=== PATIENT | female | born 1970 | race Caucasian/White ===

== ENCOUNTER 2017-06-24 13:16 | Emergency (ER) | payer BC ==
[2017-06-24] MEDS ORDERED: Ketorolac 60 MG/2 ML SDV IM ONE (13:26)
--- NOTE | 2017-06-24 14:28 | EDM.PDOC ---
ED HPI GENERAL MEDICAL PROBLEM - General Chief Complaint: Upper Extremity Injury/Pain Stated Complaint: LEFT ARM Time Seen by Provider: 06/24/17 13:25 Source of Information: Reports: Patient, Family History Limitations: Reports: No Limitations - History of Present Illness INITIAL COMMENTS - FREE TEXT/NARRATIVE: 47 y.o.w.f with H/O CAD, came to the ed after she slipped on ice and fell on ice at home onto her left forearm/wrist. On arrival, pt c/o severe pain with movement on her left wrist. Pt denies any other acute medical issues. BP 136/ 76 pulse 66 RR 18 Pulse ox 100% on RA Onset Date: 06/24/17 Onset Time: 12:05 Duration: Hour(s): Location: Reports: Upper Extremity, Left Quality: Reports: Ache, Dull Severity: Mild Improves with: Reports: Rest Worsens with: Reports: Movement Context: Reports: Trauma (Fell on ice to left wrist) Associated Symptoms: Reports: No Other Symptoms left wrist Pain Score (Numeric/FACES): 10 - Related Data Allergies Allergy/AdvReac Type Severity Reaction Status Date / Time bee venom protein (honey bee) Allergy Hives Verified 06/24/17 13:25 codeine Allergy Hives Verified 06/24/17 13:25 Home Meds: Home Meds NK [No Known Home Meds] 06/24/17 [History] Social & Family History - Family History Family Medical History: Noncontributory - Tobacco Use Smoking Status *Q: Never Smoker Second Hand Smoke Exposure: No - Caffeine Use Caffeine Use: Reports: Soda - Recreational Drug Use Recreational Drug Use: No Review of Systems - Review of Systems Review Of Systems: See Below Constitutional: Reports: No Symptoms Eyes: Reports: No Symptoms Ears: Reports: No Symptoms Nose: Reports: No Symptoms Mouth/Throat: Reports: No Symptoms Respiratory: Reports: No Symptoms Cardiovascular: Reports: No Symptoms GI/Abdominal: Reports: No Symptoms Genitourinary: Reports: No Symptoms Musculoskeletal: Reports: Joint Pain (left wrist) Skin: Reports: No Symptoms Neurological: Reports: No Symptoms Psychiatric: Reports: No Symptoms ED EXAM, GENERAL - Physical Exam Exam: See Below Exam Limited By: No Limitations General Appearance: Alert, WD/WN, Mild Distress Eye Exam: Bilateral Eye: Normal Inspection Ears: Normal External Exam Ear Exam: Bilateral Ear: Auricle Normal Nose: Normal Inspection Throat/Mouth: Normal Inspection, Normal Lips Head: Atraumatic, Normocephalic Neck: Normal Inspection, Supple, Non-Tender, Full Range of Motion Respiratory/Chest: No Respiratory Distress, Lungs Clear, Normal Breath Sounds Cardiovascular: Normal Peripheral Pulses, Regular Rate, Rhythm Peripheral Pulses: 1+: Brachial (R) GI/Abdominal: Normal Bowel Sounds, Soft, Non-Tender, No Organomegaly, No Distention, No Abnormal Bruit, No Mass, Pelvis Stable (Female) Exam: Deferred Rectal (Female) Exam: Deferred Back Exam: Normal Inspection, Full Range of Motion Extremities: Normal Inspection, Normal Range of Motion, Non-Tender, No Pedal Edema, Normal Capillary Refill Neurological: Alert, Oriented, CN II-XII Intact, Normal Cognition, Normal Gait Psychiatric: Normal Affect, Normal Mood Skin Exam: Warm, Dry, Intact, Normal Color, No Rash Lymphatic: No Adenopathy ED TRAUMA EXTREMITY PROCEDURES - Splinting Left Upper Extremity Splint Site: left upper extremity Pre-Procedure NV Status: Normal Post-Procedure NV Status: Normal Splint Material: Plaster Splint Design: Volar, Gutter (long arm) Applied & Form Fitted By: Provider Provider Post-Splint Application NV Check: NV Status Normal, Good Position Complications: No (cap refill < 2 sec, moved fingers well) Course - Vital Signs Text/Narrative:: 47 y.o.w.f with H/O CAD, came to the ed after she slipped on ice and fell on ice at home onto her left forearm/wrist. On arrival, pt c/o severe pain with movement on her left wrist. Pt denies any other acute medical issues. BP 136/ 76 pulse 66 RR 18 Pulse ox 100% on RA PE: Left wrist deformity, nl CAP refill, no open wound, pain with movement Imaging: Comminuted fx left wrist, mild displaced Impression: Comminuted fx left wrist, mild displaced Tx: Ice. Toradol, long arm splint, elevation Reexam: Improved. Cathy Elmore was called, orthp phone number was given. pt can make an appointment for Monday Plan: D/C with instructions Last Recorded V/S: Last Vital Signs Temp 36.4 C 06/24/17 13:25 Pulse 66 06/24/17 13:25 Resp 18 06/24/17 13:25 BP 137/83 02/03/18 13:25 Pulse Ox 100 06/24/17 13:25 - Orders/Labs/Meds Orders: Active Orders 24 hr Category Date Time Status Wrist Comp Min 3V Lt [CR] Stat Exams 06/24/17 13:31 Taken Meds: Medications Discontinued Medications Generic Name Dose Route Start Last Admin Trade Name Zarina PRN Reason Stop Dose Admin Ketorolac Tromethamine 60 mg 06/24/17 13:26 06/24/17 13:32 Toradol IM 06/24/17 13:27 60 mg ONETIME ONE Administration Departure - Departure Time of Disposition: 14:28 Disposition: Home, Self-Care 01 Condition: Good Clinical Impression: Fracture of wrist, closed Qualifiers: Encounter type: initial encounter Laterality: left Qualified Code(s): S62.102A - Fracture of unspecified carpal bone, left wrist, initial encounter for closed fracture - Discharge Information Instructions: Radial Fracture Referrals: Abbe Landa MD [Primary Care Provider] - Forms: ED Department Discharge, ED Return to Work/School Form Additional Instructions: Please elevate left arm, please apply ice to the affected area, please call Ortho at [facility] at [phone] for an appointment. Please come back to the ED if your symptoms get worse acutely - My Orders Last 24 Hours: My Active Orders 06/24/17 13:31 Wrist Comp Min 3V Lt [CR] Stat - Assessment/Plan Last 24 Hours: My Active Orders 06/24/17 13:31 Wrist Comp Min 3V Lt [CR] Stat
== END 2017-06-24 14:48 | disposition home or self-care (01) ==
LOC: FB.ED 13:16
DX: S52.502A Unspecified fracture of the lower end of left radius, initial encounter for closed fracture (principal); S52.612A Displaced fracture of left ulna styloid process, initial encounter for closed fracture; W00.0XXA Fall on same level due to ice and snow, initial encounter; Y92.009 Unspecified place in unspecified non-institutional (private) residence as the place of occurrence of the external cause; Z88.5 Allergy status to narcotic agent; Z91.030 Bee allergy status
CPT/HCPCS: 29125; 73110-LT; 96372; 99283; J1885

== ENCOUNTER 2022-11-08 07:17 | Emergency (ER) | payer BC, OTHER ==
[2022-11-08] MEDS ORDERED: Ondansetron 4 MG Tab.DIS PO ONE (07:49)
[2022-11-08] MEDS ORDERED: Acetaminophen 500 MG Tab PO ONE (07:49)
[2022-11-08] MEDS ORDERED: Ketorolac 30 MG/ML SDV IM ONE (07:49)
== END 2022-11-08 08:35 | disposition home or self-care (01) ==
LOC: FB.ED 07:17
DX: S09.90XA Unspecified injury of head, initial encounter (principal); Z88.5 Allergy status to narcotic agent; Z91.030 Bee allergy status; W01.198A Fall on same level from slipping, tripping and stumbling with subsequent striking against other object, initial encounter; Y92.89 Other specified places as the place of occurrence of the external cause; Y99.0 Civilian activity done for income or pay
CPT/HCPCS: 96372; 99000; 99283; A9270; J1885; Q0162

== ENCOUNTER → 2025-04-10 | Day surgery (SDC) | payer OTHER ==
[~2025-04-10] MED LIST: Midazolam 1 MG/ML 2 ML SDV IV ONE; Propofol 200 MG/20 ML SDV IV ONE; Sodium Chloride 0.9% 10 ML Syringe FLUSH PRN
[2025-04-10] MEDS: Lactated Ringers 1,000 ML IV SCH (07:03)
== END | disposition home or self-care (01) ==
LOC: FB.SDS 06:11
PROVIDERS: ATTEND Surgery
DX: K22.10 Ulcer of esophagus without bleeding (principal); I85.00 Esophageal varices without bleeding; K21.00 Gastro-esophageal reflux disease with esophagitis, without bleeding; G47.33 Obstructive sleep apnea (adult) (pediatric); F41.9 Anxiety disorder, unspecified; F32.A Depression, unspecified; J45.909 Unspecified asthma, uncomplicated; Z88.8 Allergy status to other drugs, medicaments and biological substances; Z88.6 Allergy status to analgesic agent; Z91.030 Bee allergy status; Z91.040 Latex allergy status; Z79.899 Other long term (current) drug therapy
CPT/HCPCS: 00812; 43239; 88305; 88312; A9270; J2003; J2250; J2704; J7120